=== PATIENT | male | born 1960 | race Caucasian/White ===

== ENCOUNTER → 2021-08-09 | Day surgery (SDC) | payer OTHER ==
[~2021-08-09] MED LIST: CIALIS5 MG PO; FISH OIL 1,0001 EAC9 PO; IRBESARTAN75 MG PO; NORCO5 PO; PROSCAR 5MG TABL5 M1 PO; TYLENOL PM EX-1 EACH PO; VITAMIN D210 MCG PO; WELLBUTRIN 75 M75 M1 PO; ZINC50 M1 PO
--- NOTE | ~2021-08-09 | OP ---
[place] [address] [place] [address] OPERATIVE REPORT Name: DELORESNASIR Kerrie Room: [facility]#: [id number] Admission: 08/09/21 Attend Phys: Long Saravia Discharge: Date of : 58 Report #: [id number] THIS REPORT FOR: cc: FAM - No family physician/PCP FAM - No family physician/PCP Long Saravia MD ~ DATE OF SURGERY: 08/09/2021 PREOPERATIVE DIAGNOSIS: Midline upper back mass, 4 x 4 cm. POSTOPERATIVE DIAGNOSIS: Midline upper back mass, 4 x 4 cm. OPERATION: Excision of upper back mass, 4 x 4 cm. SURGEON: Long Saravia MD ANESTHESIA: General. ESTIMATED BLOOD LOSS: Minimal. SPECIMENS: Back mass. DESCRIPTION OF PROCEDURE: After informed consent was obtained, the patient was brought to the operating room and placed supine. SCDs were placed and working, preoperative antibiotics were administered, general anesthesia was induced. The patient was then placed in the right lateral decubitus position. Axillary roll was placed and all bony prominences were protected. The back was prepped and draped in the usual sterile fashion. A 4 x 4 cm incision was made. Cautery dissection was made down through the subcutaneous fat. Multiple epidermal inclusion cysts were dissected around. These were then excised. I dissected down all the way to healthy tissue. The area was then copiously irrigated. It was not closed because there was some pus in one of these masses. It was packed with sterile gauze. Sterile dressings were applied. COMPLICATIONS: None. DISPOSITION: The patient was taken to recovery in satisfactory condition. By: [id number] Saravia MD /nt
[2021-08-09 06:57] LABS: HEMATOCRIT 42.6 % (42.0-52.0); HEMOGLOBIN 14.3 gm/dL (14.0-18.0); MCH 29.1 pg (26.0-34.0); MCHC 33.5 g/dL (28.0-37.0); MCV 86.9 fL (80.0-100.0); MPV 8.6 fl. (7.2-11.1); RBC 4.9 mil/uL (4.50-6.00); RDW-CV 13.4 % (10.5-14.5); WBC 5.5 thou/uL (4.0-11.0)
[2021-08-09 07:26] LABS: CALCIUM 8.9 mg/dL (8.5-10.1); POTASSIUM 4.4 mmol/L (3.5-5.1)
--- NOTE | 2021-08-09 09:13 | EKG ---
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1960 Requested By: Long Saravia Order Number: [id number] Jordy MD: Justin Cid Measurements Intervals [place] Rate: 67 P: -7 [place]: 200 QRS: -53 QRSD: 181 T: 106 QT: 448 QTc: 473 Interpretive Statements Atrial-sensed ventricular-paced complexes No further rhythm analysis attempted due to paced rhythm Left bundle branch block No previous ECG available for comparison Electronically Signed On 08-09-2021 9:13:42 [employer] by Justin Cid [email or web address] <ELECTRONICALLY SIGNED> By: Justin Cid MD, FACC 08/09/21 0913 0658 0658 Justin Cid MD, [facility] /EPI
--- NOTE | 2021-08-14 13:08 | PATH ---
[address] [address] PATHOLOGY RPT PROCEDURE Name: FELIPE ESTRELLA Room: [facility]#: [id number] Admission: 08/09/21 Date of : 58 Discharge: Report #: [id number] Path Case #: [id number] [facility] Accession Number: [id number] . 01 Material submitted: . back - BACK MASS . 01 Clinical history: . EXCISION OF MASS . 02 Diagnosis: Back mass: - Benign skin with evidence of dermal abscess associated with chronic and foreign body type granulomatous response and fibrosis suggesting ruptured epithelial inclusion cyst(s). (STEPHEN/db; 08/10/2021) LBQ 08/10/2021 1708 Local . 02 Electronically signed: . Gilson Valencia MD, Pathologist NPI- [id number] . 01 Gross description: . The specimen is received in formalin, labeled "Felipe Estrella, back mass" and consists of two unoriented elliptical skin excisions (1.7 x 0.6 cm, excised to a depth of 1.1 cm and 3.5 x 1.4 cm, excised to a depth of 2.0 cm), each of which is surfaced with lepe smooth skin. The surgical margin on the larger excision is previously disrupted. Also received in the same container are multiple pink and white fatty rubbery irregular tissues aggregating 5.0 x 4.3 x 1.7 cm. Sectioning through the additional tissues reveals pink and white fibrotic and dusky cut surfaces. Manager Code sections are submitted in A1-A2.(NANWALEK; 08/09/2021) DKA/DKA 08/09/2021 1614 Local . 02 Pathologist provided ICD-10: L02.212, L92.3 . 02 CPT . 613370 Specimen Comment: A courtesy copy of this report has been sent to [phone] Specimen Comment: Report sent to Specimen Comment: A duplicate report has been generated due to demographic updates. Performed at: [address] [facility] [address] [id number] MD Suleman Nye MD Phone: [phone] Performed at: [address] [place] [address] PATHOLOGY RPT PROCEDURE Name: FELIPE ESTRELLA Room: [facility]#: [id number] Admission: 08/09/21 Date of : 58 Discharge: Report #: [id number] Path Case #: [id number] [facility] [address], [place] [id number] MD Gilson Valencia MD Phone: [phone]
== END | disposition home or self-care (01) ==
LOC: M.SUR 05:58
PROVIDERS: ATTEND Surgery
DX: L92.3 Foreign body granuloma of the skin and subcutaneous tissue (principal); L02.212 Cutaneous abscess of back [any part, except buttock and flank]; Z98.890 Other specified postprocedural states; Z79.899 Other long term (current) drug therapy; Z20.822 Contact with and (suspected) exposure to COVID-19; Z88.0 Allergy status to penicillin